=== PATIENT | male | born 1995 | race Caucasian/White ===

== ENCOUNTER 2020-01-28 16:37 | Emergency (ER) | payer BC ==
[2020-01-28] MEDS ORDERED: KETOROLAC TROMETHAMINE INJ 60 MG/2 ML VIAL IM ONE (20:11)
[2020-01-28] MEDS ORDERED: ONDANSETRON ODT 8 MG TAB SL ONE (20:11)
--- NOTE | 2020-01-28 20:12 | ED.PDOC ---
History of Present Illness - General Chief Complaint: Problem Stated Complaint: L testicular pain, nausea, tiredness Time Seen by Provider: 01/28/20 16:51 Source: patient - History of Present Illness Initial Comments: 24 yo male who presents with cc of Left testicular pain. Onset approx 1 month ago and largely unchanged since then. 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 Reports pain is located to entire L testicle, constant, dull, "like someone were to tap you on the testicles", 4/10 severity at worse, currently 2/10 severity, worse with standing/walking and when wearing his climbing harness, better at rest or lying down, taking OTC analgesics with little improvement. He thought he may have felt an abnormal mass which concerned him so he came into the ED for evaluation. Denies any color change, swelling, penile discharge, hematuria, dy suria, fevers, chills. No reported hx of STI's. Does report also some occasional assoc'd nausea w/o emesis and lightheadedness. Occurred earlier today but gone now. PCP is Dr. aYnez in [place]. Allergies/Adverse Reactions: Allergies NO KNOWN ALLERGY Allergy (Verified 01/28/20 17:04) Home Medications: Ambulatory Orders NK 01/28/20 Review of Systems - Review of Systems Review of Systems: 01/29/20 01:06 as per HPI All other Systems: Reviewed and Negative Past Medical History (General) - Patient Medical History Hx Stroke: No Hx of COPD: No Hx Cardiac Disorders: No Hx Hypertension: No Hx Diabetes: No Hx Gastroesophageal Reflux: Yes Hx Cancer: No Surgical History: other - Vaccination History Hx Tetanus, Diphtheria Vaccination: No Hx Influenza Vaccination: No Hx Pneumococcal Vaccination: No Immunizations Up to Date: No - Social History Hx Tobacco Use: Yes Hx Alcohol Use: Yes Hx Substance Use: No Hx Substance Use Treatment: No Hx Depression: No - Female History Patient is a Female of Child Bearing Age (10 -59 yrs old): No Patient : No Family Medical History - Family History Maternal Grandparents Living Status: Still Living Hx Family Diabetes: Yes Paternal Grandparents Living Status: Hx Cardiac Disease: Yes Physical Exam - Physical Exam General Appearance: Alert, Comfortable, No apparent distress Eyes, Ears, Nose, Throat Exam: PERRL/EOMI, normal ENT inspection, pharynx normal Neck: non-tender, full range of motion, supple, normal inspection Cardiovascular/Respiratory: regular rate, rhythm, no M/R/G, normal peripheral pulses, normal breath sounds, no respiratory distress Gastrointestinal/Abdominal: non tender, soft, no organomegaly, other - no hernias or masses Male Genital Exam: normal genitalia, no hernia, testicular tenderness (L), other - inspection of scrotum, testicles, and penis is normal. Testicles appear normal and symmetrical in size & shape. There is moderate ttp to Left testicle, which is soft and without palpable masses. There is no redness/warmth/induration. No inguinal hernias noted. Cremasteric reflex present. Back Exam: normal inspection, no CVA tenderness Extremity: normal range of motion, non-tender, normal inspection, no pedal edema, normal capillary refill Neurologic: no motor/sensory deficits, alert, normal mood/affect, oriented x 3 Skin Exam: normal color, warm/dry Progress - Progress Progress: 01/29/20 18:19 L testicular pain -chronic in nature, no acute injuries, unchanged now >1 month -suspect occupational in nature from chronic compression injury likely causing contusion of the testicle, which has not been allowed to heal. Consider also acute epididymitis/orchitis, hernia, torsion, varicocele, spermatocele, hydrocele, other. Emergent etiologies appear highly doubtful given clinical picture and physical exam findings -obtain labwork, UA. US not available at this facility on weekends and after hours. Will give Toradol 60 mg IM for pain & Zofran for nausea 01/28/20 20:19 -Labwork reviewed - pretty unremarkable. UA wnl. WBC wnl. -Pain remains well-controlled at rest and pt remains stable. Advised to stop wearing climbing harness and allow rest & recovery and f/u closely with PCP for outpatient imaging +/- urology referral -dc to home in good condition, return warnings discussed Seth Nichols MD Billing #[id number] Laboratory Results - last 24 hr 01/28/20 01/28/20 01/28/20 17:08 17:08 17:19 WBC 7.3 RBC 5.12 Hgb 15.4 Hct 44.7 MCV 87.4 MCH 30.1 MCHC 34.4 RDW 12.6 Plt Count 221 MPV 7.8 Absolute Neuts (auto) 3.90 Absolute Lymphs (auto) 2.40 Absolute Monos (auto) 0.60 Absolute Eos (auto) 0.30 Absolute Basos (auto) 0.10 Neutrophils % 53.2 Lymphocytes % 33.1 Monocytes % 8.7 Eosinophils % 4.2 Basophils % 0.8 Sodium 137 Potassium 3.6 Chloride 103 Carbon Dioxide 26 Anion Gap 11.6 L BUN 13 Creatinine 1.18 BUN/Creatinine Ratio 11.0 Random Glucose 97 Serum Osmolality 273.9 L Calcium 9.5 Total Bilirubin 0.9 AST 21 ALT 21 Alkaline Phosphatase 50 Serum Total Protein 7.9 Albumin 4.7 Globulin 3.2 Albumin/Globulin Ratio 1.5 Urine Color Yellow Urine Appearance Clear Urine pH 6.0 Ur Specific [place] >= 1.030 Urine Protein Negative Urine Glucose (UA) Negative Urine Ketones Negative Urine Blood Negative Urine Nitrite Negative Urine Bilirubin Negative Urine Urobilinogen 0.2 Ur Leukocyte Esterase Negative Urine RBC 0 Urine WBC 0 Ur Epithelial Cells 0 Urine Bacteria 0 Departure - Departure Clinical Impression: Contusion of testicle Qualifiers: Encounter type: initial encounter Qualified Code(s): S30.22XA - Contusion of scrotum and testes, initial encounter Time of Disposition: 20:14 Disposition: Discharge to Home or Self Care Condition: Good Departure Forms: ED Discharge - Pt. Copy, ED Discharge - Work Release, Patient Portal Self Enrollment Instructions: Contusion (DC) Diet: resume usual diet Activity: other - no climbing gear or excess compression to scrotum Referrals: RYDER YANEZ [Primary Care Provider] - 1-5 Days Home Medications: Ambulatory Orders NK 01/28/20 Additional Instructions: Cease all climbing and any activity or apparel with compressive gear to scrotum until cleared by your doctor. Continue to take ibuprofen 800 mg every 8 hours for next 2-3 days and then you may take every 8 hours as needed. You may also safely take Tylenol with ibuprofen for pain. Return if symptoms worsen or other concerning symptoms develop such as testicular swelling, color change, redness, warmth, rapid worsening of pain, blood/discharge from the penis, etc... Follow up with your PCP next week for outpatient US imaging of the testicle and possible urology referral.
[2020-01-28 20:14] VITALS: O2SAT 97
[2020-01-28] MEDS ORDERED: ONDANSETRON ODT (ER DISP) 8 MG TAB PO ONE (20:15)
[2020-01-28 20:53] VITALS: BP 112/92; TEMP 97.5
== END 2020-01-28 20:54 | disposition home or self-care (01) ==
LOC: ER 16:37
DX: S30.22XA Contusion of scrotum and testes, initial encounter (principal); Z87.891 Personal history of nicotine dependence; X58.XXXA Exposure to other specified factors, initial encounter; Y92.9 Unspecified place or not applicable
CPT/HCPCS: 80053; 81001; 85025; J1885

== ENCOUNTER → 2020-01-30 | Outpatient (CLI) | payer BC ==
--- NOTE | 2020-01-30 17:22 | US ---
EXAM DESCRIPTION: Testicular: Ultrasound. CLINICAL HISTORY: 24 years Male testicular pain COMPARISON: None. TECHNIQUE: Transcutaneous scanning ; moya-scale and Doppler modes. FINDINGS: Dimensions of the right testicle are 4.4 x 2.2 x 2.4 cm, with normal echogenicity and normal color Doppler flow. Epididymal head measures 10 x 7 x 4 mm, with normal echogenicity and normal color Doppler flow. No scrotal wall thickening. No Hydrocele. Dimensions of the left testicle are 4.2 x 3.1 x 2.4 cm, with normal echogenicity and normal color Doppler flow. Epididymal head measures 11 x 6 x 4 mm, with normal echogenicity and normal color Doppler flow. No scrotal wall thickening. No Hydrocele. IMPRESSION: Bilaterally normal testicles and epididymides. No scrotal wall thickening. No hydroceles or other scrotal masses. Electronically signed by: Gelacio Silva MD 01/30/2020 5:20 PM CDT
== END ==
LOC: US 12:48
PROVIDERS: ATTEND Nurse Practitioner
DX: N50.819 Testicular pain, unspecified (principal)